=== PATIENT | female | born 1965 | race Caucasian/White ===

== ENCOUNTER 2019-10-01 14:49 | Outpatient (CLI) | payer OTHER, SELFPAY ==
--- NOTE | 2019-10-01 | ECHO_ITS ---
Patient Info Name: Latoya Gilliland Age: 54 years : 1965 Gender: Female Ht: 64 in Wt: 220 lbs BSA: 2.17 m2 HR: 68 bpm Heart Rhythm: Sinus Rhythm Technical Quality: Good Exam Date: 10/01/2019 2:58 PM Exam Location: [facility] Pulmonary Patient Status: Outpatient Admit Date: 10/01/2019 BP unable to obtain due to: Other Staff Ordering Physician: Wesley, Nohemi WISEMAN Electroplating Worker: Ranjan Sullivan RDCS Attending Provider: Wesley, Nohemi WISEMAN Referring Physician: Wesley KUHN; Exam Type: CA echo doppler color flow Study Info Indications R06.09 - Other forms of dyspnea Complete two-dimensional, color flow and Doppler transthoracic echocardiogram is performed. History/Risk Factors Dyspnea; CVA, HTN, DM2. Summary 1. Left ventricular systolic function is normal, estimated at 60-65%. 2. The left ventricular diastolic function is normal. 3. No significant valvular pathology. Left Ventricle Left ventricular chamber dimension is normal. Left ventricular systolic function is normal, estimated at 60-65%. There is mild concentric increased left ventricular wall thickness. The left ventricular diastolic function is normal. Right Ventricle Right ventricular chamber dimension is normal. Left Atria Left atrial chamber dimension is normal. Right Atria Right atrial chamber dimension is normal. Aortic Valve The aortic valve is trileaflet. There is mild aortic valve sclerosis. Pulmonic Valve The pulmonic valve is not well visualized. Mitral Valve The mitral valve has normal leaflets. Tricuspid Valve The tricuspid valve leaflets are normal. Pericardium/Pleural The pericardium appears normal. Aorta The aortic root size at the sinus of Valsalva is normal. Left Ventricular Outflow Tract Name Value Normal LVOT 2D LVOT Diameter 1.9 cm LVOT Doppler LVOT Peak Gradient 11 mmHg LVOT Mean Gradient 5 mmHg LVOT VTI 37 cm LVOT VTI/AV VTI Ratio 0.7 LVOT Stroke Volume 106 ml LVOT CO 7.3 l/min LVOT CI 3.4 l/min/m2 Mitral Valve Name Value Normal MV Doppler MV Decel Jenkins 420 cm/s2 MV PHT 67 ms MV Area (PHT) 3.3 cm2 4.0-5.0 MV Diastolic Function MV E Peak Velocity 97 cm/s MV A Peak Velocity 82 cm/s MV E/A 1.2 MV Decel Time 230 ms MV Annular TDI MV
== END 2019-10-01 14:50 | disposition home or self-care (01) ==
PROVIDERS: Visit Provider Physician Assistant
DX: R06.09 Other forms of dyspnea (principal)
CPT/HCPCS: 93306

== ENCOUNTER 2021-10-20 14:43 | Outpatient (CLI) | payer OTHER, SELFPAY ==
--- NOTE | ~2021-10-20 | XR_ITS ---
XR knee RT 3V DATE: 10/20/2021 15:20 INDICATION: Right knee joint pain for 2 months TECHNIQUE: Otis and AP, PA and lateral weight bearing views COMPARISON: None FINDINGS: There is tricompartment osteophytosis, most pronounced at the medial compartment with promi nent medial compartment joint space loss. There is periarticular spurring at all 3 compartments. Supe rior pole patellar enthesopathy at quadriceps tendon insertion. Small suprapatellar knee joint effusion is suggested. Osteopenia. No fracture or dislocation, periosteal reaction or bone destruction. No radiopaque intra-articular lo ose body or chondrocalcinosis. 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 Impression: Tricompartment osteoarthritis, most pronounced at the medial compar tment Small knee joint effusion
--- NOTE | ~2021-10-20 | XR_ITS ---
XR chest 2V DATE: 10/20/2021 15:21 INDICATION: Wheezing TECHNIQUE: PA and lateral views COMPARISON: None FINDINGS: Normal heart size. No hilar or mediastinal enlargement. No pulmonary infiltrate or consolid ation, pleural effusion or pulmonary vascular congestion or pneumothorax. Dextroscoliosis of the thoracic spine. Osteopenia. IMPRESSION: No active cardiopulmonary disease Mild thoracic dextro scoliosis Osteopenia Reviewed, dictated and finalized at location B.
== END 2021-10-20 14:44 | disposition home or self-care (01) ==
PROVIDERS: PCP Physician Assistant; Visit Provider Physician Assistant
DX: R06.2 Wheezing (principal); M25.461 Effusion, right knee; M17.11 Unilateral primary osteoarthritis, right knee; M85.88 Other specified disorders of bone density and structure, other site; M41.9 Scoliosis, unspecified
CPT/HCPCS: 71046; 73562

== ENCOUNTER 2022-03-03 15:46 | Outpatient (CLI) | payer OTHER, SELFPAY ==
--- NOTE | ~2022-03-03 | DEXA_ITS ---
Bone Density Report Name: JOVANI JAIME Age: 56 Sex: Female Ethnicity: White Date of : 1965 Indication: postmenopausal; screening for osteoporosis; height loss; Referring Provider: STALIN FOSTER Study: Bone densitometry was performed. Exam Date: March 03, 2022 Accession number: [id number] Bone Density: Region BMD T-score Z-score Classification AP Spine(L1-L4) 0.995 -0.5 0.8 Normal Femoral Neck (Left) 0.798 -0.5 0.8 Normal Total Hip (Left) 0.918 -0.2 0.7 Normal Femoral Neck (Right) 0.737 -1.0 0.2 Normal Total Hip (Right) 0.871 -0.6 0.3 Normal Total Hip Mean 0.894 -0.4 0.5 Normal World Health Organization criteria for BMD impression classify patients as: Normal (T-score at or above -1.0), Osteopenia (T-score between -1.0 and -2.5), or Osteoporosis (T-score at or below -2.5). 10-year Fracture Risk: FRAX not reported because: All T-scores for Spine Total, Hip Total, Femoral Neck at or above -1.0 Clinical Information Provided by Patient: Has used the following medications: Vitamin D, Calcium Patient maximum height was 65 Menopause Age: 46 Does not regularly consume dairy products Drinks caffeinated beverages Onset of menses at age 14 Number of children 2 Impression: The patient has normal bone mass. Discussion: BONE DENSITY IS ABOVE THE MINIMUM DESIRABLE LEVEL AT ALL SKELETAL SITES TESTED. This patient?s bone mineral density is above the minimum desirable level (T-score -1.0 or better) at all sites measured. The patient should follow a healthful lifestyle (good nutrition with adequate calcium and vitamin D, and appropriate weight-bearing exercise). Follow-Up: Consider repeating this study in 5 years or sooner if there is some new clinical indication. Reported by: [facility] on 03/03/2022 4:26:00 PM. Reviewed, dictated and finalized at location ABrianna STOCK
--- NOTE | ~2022-03-03 | MM_ITS ---
EXAMINATION: MM screening sweta BI w fernando HISTORY: Screening mammogram TECHNIQUE: Craniocaudal and mediolateral oblique 3-D tomosynthesis images were obtained and synthetic 2-D images were generated. CAD analysis was submitted and interpreted. COMPARISON: No prior mammogram is available for comparison at this institution. BREAST PARENCHYMAL COMPOSITION: The breasts are heterogeneously dense, which may obscure small masses . FINDINGS: RIGHT BREAST: Asymmetry is present in the middle third of inner breast 4.5 cm from the nipple on the craniocaudal view. LEFT BREAST: There is possible architectural distortion best appreciated 5 cm from the nipple in the middle third of the inner breast on the craniocaudal view. IMPRESSION: 1. Bilateral breast findings as described above. 2. Additional mammographic views and possible breast ultrasound are recommended. BI-RADS Category 0: Incomplete: Needs additional imaging evaluation. Reviewed, dictated and finalized at location A. PHIBIOUS OPERATIONS OFFICER IMPRESSION: 1. Bilateral breast findings as described above. 2. Additional mammographic views and possible breast ultrasound are recommended . BI-RADS Category 0: Incomplete: Needs additional imaging evaluation.
== END 2022-03-03 15:47 | disposition home or self-care (01) ==
LOC: ANHIMG 15:51
PROVIDERS: PCP Physician Assistant; Visit Provider Advanced Practice Midwife
DX: Z12.31 Encounter for screening mammogram for malignant neoplasm of breast (principal); M81.0 Age-related osteoporosis without current pathological fracture; R92.8 Other abnormal and inconclusive findings on diagnostic imaging of breast
CPT/HCPCS: 77063; 77067; 77080

== ENCOUNTER 2022-03-25 10:03 | Emergency (ER) | payer OTHER, SELFPAY ==
--- NOTE | 2022-03-25 10:12 | ED.FEMALEGU ---
HPI - Female Genitourinary General Chief complaint: Urogenital-Female Stated complaint: possible UTI Time Seen by Provider: 03/25/22 10:25 Source: patient and RN notes reviewed Mode of arrival: ambulatory Limitations: no limitations History of Present Illness HPI Narrative: 56-year-old female presents concern for urinary tract infection. She reports symptoms started about a week ago and seemed to go away, they came back about 2 days ago and or worse. She reports low back pain, nausea, incontinence. Denies fevers MD elicited complaint: UTI Related Data Home Medications Medication Instructions Recorded Confirmed aspirin 81 mg tablet,delayed 81 mg DAILY 03/25/22 03/25/22 release atenolol 100 mg tablet 100 mg DAILY 03/25/22 03/25/22 atorvastatin 80 mg tablet 80 mg DAILY 03/25/22 03/25/22 clopidogrel 75 mg tablet 75 mg DAILY 03/25/22 03/25/22 insulin detemir U-100 100 unit/mL 100 unit subcut DIRECTED 03/25/22 03/25/22 (3 mL) subcutaneous pen (Levemir FlexTouch U-100 Insulin) lisinopril 20 1 tablet BID 03/25/22 03/25/22 mg-hydrochlorothiazide 12.5 mg tablet Allergies Allergy/AdvReac Type Severity Reaction Status Date / Time Sulfa (Sulfonamide Allergy Intermediate Hives / Verified 03/25/22 10:16 Antibiotics) Red Face Review of Systems Review of Systems: CONSTITUTIONAL: Denies malaise, chills, sweats, or fever. CARDIOVASCULAR: Denies chest pain, palpitations, or edema. RESPIRATORY: Denies cough or dyspnea. GASTROINTESTINAL: Mild abdominal discomfort palpation, nausea, vomiting, diarrhea GENITOURINARY: Reports dysuria, frequency, urgency, suprapubic pressure. Denies flank pain or hematuria. SKIN: Denies rash or itching. MUSCULOSKELETAL: Denies back pain or myalgia. All systems reviewed & are unremarkable except as noted in HPI and below PMFSH Comments At time of signature, agree with nursing past medical, surgical, social and family history. There is no relevant family history pertinent to the presenting complaint Exam Narrative: GENERAL: Well-appearing, well-nourished, and in no acute distress. HEAD: Normocephalic. EYES: PERRLA, conjunctivae clear. NECK: Supple. No lymphadenopathy CHEST: Clear to auscultation. No respiratory distress. HEART: Regular rate and rhythm. ABDOMEN: Soft, nontender upon palpation, nondistended, normal active bowel sounds, no palpable or pulsatile masses, no guarding. No CVA tenderness SKIN: Warm, dry, no rash. NEURO: Alert and oriented x3. PSYCH: Normal mood and affect Course Course Emergency Course: Patient is aware of diagnosis, understands and agrees to treatment plan. Anticipatory guidance given. Patient agrees to follow-up as directed and is aware of reasons to seek care at the emergency department. Portions of this record may have been created with voice recognition software Level of Care: Express Care Visit Vital Signs Vital signs: Reviewed. MDM - Female Genitourinary MDM Narrative Medical decision making narrative: Exam findings and UA show no acute concerns or changes; patient is non-toxic appearing and is in no distress. Patient is appropriate for outpatient treatment and follow-up. Differential Diagnosis Differential diagnosis: Likely urinary tract infection and cystitis Critical Care Time Critical Care Time Critical Care Time: No Discharge Plan Discharge Clinical Impression: Urinary tract infection Patient Disposition: Home, Self-Care Condition: Stable Instructions: Antibiotic Form, Urinary Tract Infection in Women (ED) Additional Instructions: We will send a urine culture to the lab; if the culture identifies an organism that the prescribed antibiotic will not treat, you will receive a phone call from an urgent care staff member and an appropriate antibiotic will be prescribed. -Your symptoms should begin to improve within a day of starting antibiotics. But you should finish all the antibiotic pills you get. Otherwise your
[2022-03-25 10:16] VITALS: BP 126/53; PULSE 73; RESP 16; TEMP 36.4; O2SAT 99
[2022-03-25 10:17] VITALS: BP 126/53; PULSE 73; RESP 16; TEMP 36.4; O2SAT 99
== END 2022-03-25 10:26 | disposition home or self-care (01) ==
PROVIDERS: Emergency Provider Nurse Practitioner; PCP Physician Assistant
DX: N39.0 Urinary tract infection, site not specified (principal); E78.00 Pure hypercholesterolemia, unspecified; I10 Essential (primary) hypertension; E11.9 Type 2 diabetes mellitus without complications
CPT/HCPCS: 81003; 87077; 87086; 87088; 99213; G0463

== ENCOUNTER 2022-06-08 11:45 | Outpatient (CLI) | payer OTHER, SELFPAY ==
--- NOTE | ~2022-06-08 | MMUS_ITS ---
EXAMINATION: MM diagnostic sweta BI w fernando, US breast BI limited HISTORY: Right breast asymmetry and possible architectural distortion of the left breast on screening mammogram TECHNIQUE: Additional 3-D tomosynthesis images of the breasts were performed and synthetic 2-D images were generated. CAD analysis was submitted and interpreted. High resolution limited bilateral breast ultrasound was performed. COMPARISON: 03/03/2022 BREAST PARENCHYMAL COMPOSITION: The breasts are heterogeneously dense, which may obscure small masses . FINDINGS: MAMMOGRAPHIC FINDINGS: Right breast: There is persistent asymmetry in the middle third of the inner breast 4.5 cm from the n ipple on the craniocaudal view. No associated mass or architectural distortion are identified. Left breast: No persistent suspected architectural distortion is identified with spot compression of the left breast. ULTRASOUND: Right breast: There is a possible 5 mm hypoechoic mass at the 2:00 location 5 cm from the nipple with no posterior features or internal vascularity. There is a 4 mm oval, circumscribed, parallel, hypoec hoic mass at the 12:00 location 2 cm from the nipple with no posterior features or internal vasculari ty. Left breast: No sonographic correlate is identified for the mammographic finding in question. IMPRESSION: 1. Probably benign asymmetry and masses of the right breast. 2. Recommend 6 month follow-up right diagnostic mammogram and ultrasound. BI-RADS category 3, probably benign findings. Reviewed, dictated and finalized at location A. Y ATTENDANT IMPRESSION: 1. Probably benign asymmetry and masses of the right breast. 2. Recommend 6 month follow-up right diagnostic mammogram and ultrasound. BI-RADS category 3, probably benign findings.
== END 2022-06-08 11:46 | disposition home or self-care (01) ==
LOC: ANHIMG 11:47
PROVIDERS: PCP Physician Assistant; Visit Provider Advanced Practice Midwife
DX: R92.8 Other abnormal and inconclusive findings on diagnostic imaging of breast (principal)
CPT/HCPCS: 76642; 77062; 77066; G0279

== ENCOUNTER 2022-08-24 08:04 | Emergency (ER) | payer OTHER, SELFPAY ==
--- NOTE | 2022-08-24 08:12 | ED.SKABFB ---
HPI - Skin/Abscess/Foreign Bdy General Chief complaint: Skin/Abscess/Foreign Body Stated complaint: Rash Time Seen by Provider: 08/24/22 08:39 Source: patient and RN notes reviewed Mode of arrival: ambulatory Limitations: no limitations History of Present Illness HPI narrative: 57 year old female presents with concern for itchy rash on her right arm in the antecubital space, in the webbing of her left fingers, between her breasts, and now is on her left eyelid. She reports the rash on her left arm has wept clear fluid. She denies any known exposure to poison richard or other plants, She denies any new personal care products or home care products. She denies swollen lips, swollen tongue. She reports she has had similar rash in the past, she has never been diagnosed with eczema. She reports she took Benadryl that helped with the itching. MD complaint: rash Related Data Home Medications Medication Instructions Recorded Confirmed aspirin 81 mg tablet,delayed 81 mg DAILY 03/25/22 08/24/22 release atenolol 100 mg tablet 100 mg DAILY 03/25/22 08/24/22 atorvastatin 80 mg tablet 80 mg DAILY 03/25/22 08/24/22 clopidogrel 75 mg tablet 75 mg DAILY 03/25/22 08/24/22 insulin detemir U-100 100 unit/mL 100 unit subcut DIRECTED 03/25/22 08/24/22 (3 mL) subcutaneous pen (Levemir FlexTouch U-100 Insulin) lisinopril 20 1 tablet BID 03/25/22 08/24/22 mg-hydrochlorothiazide 12.5 mg tablet Allergies Allergy/AdvReac Type Severity Reaction Status Date / Time Sulfa (Sulfonamide Allergy Intermediate Hives / Verified 08/24/22 08:10 Antibiotics) Red Face Review of Systems Review of Systems: CONSTITUTIONAL: Denies malaise, chills, sweats, or fever. EYES: Denies redness, or discharge. ENT: Denies rhinorrhea, congestion, swollen lips, swollen tongue CARDIOVASCULAR: Denies chest pain, palpitations, or edema. RESPIRATORY: Denies cough or dyspnea. GASTROINTESTINAL: Denies abdominal pain, nausea, vomiting SKIN: Reports itchy rash on her right arm, left hand, chest, left eye MUSCULOSKELETAL: Denies joint pain or myalgia. NEUROLOGIC: Denies headache. All systems reviewed & are unremarkable except as noted in HPI and below PMFSH Comments At time of signature, agree with nursing past medical, surgical, social and family history. There is no relevant family history pertinent to the presenting complaint Exam Narrative: GENERAL: Well-appearing, well-nourished, and in no acute distress. HEAD: Normocephalic, atraumatic. EYES: PERRLA, conjunctivae clear, and EOMI. ENT: Mucous membranes moist. Oropharynx without edema, erythema or lesions. NECK: Supple. No lymphadenopathy CHEST: Clear to auscultation. No respiratory distress. HEART: Regular rate and rhythm. SKIN: Warm, dry. Patches of plaque like erythema without vesicles noted in the right antecubital space, in the webbing of the left hand fingers, in the crease of the breasts and a small patch on the left eyelid NEURO: Alert and oriented x3. PSYCH: Normal mood and affect Course Course Emergency Course: Patient is aware of diagnosis, understands and agrees to treatment plan. Anticipatory guidance given. Patient agrees to follow-up as directed and is aware of reasons to seek care at the emergency department. Portions of this record may have been created with voice recognition software Level of Care: Express Care Visit Vital Signs Vital signs: Reviewed. MDM - Skin/Abscess/Foreign Bdy MDM Narrative Medical decision making narrative: Does not appear at this time to be erythema multiforme, bullous, SJS, TEN; no evidence at this time to suggest RMSF, endocarditis or Lyme disease; patient looks well, nontoxic and is tolerating oral intake; no neurologic signs or symptoms; no headache, photophobia or neck pain; afebrile; appropriate for initial outpatient treatment; discussed the importance of follow-up, patient agrees; question, viral exanthema, contact dermatitis, allergic
[2022-08-24 08:13] VITALS: BP 138/74; PULSE 66; RESP 16; TEMP 36.9; O2SAT 99
== END 2022-08-24 08:47 | disposition home or self-care (01) ==
PROVIDERS: Emergency Provider Nurse Practitioner; PCP Physician Assistant
DX: L30.9 Dermatitis, unspecified (principal); E78.00 Pure hypercholesterolemia, unspecified; I10 Essential (primary) hypertension; E11.9 Type 2 diabetes mellitus without complications
CPT/HCPCS: 99213; G0463

== ENCOUNTER 2022-11-30 07:53 | Observation (INO) | payer OTHER, SELFPAY ==
[2022-11-30] VITALS (38 sets, daily range): BP systolic 107–181; BP diastolic 60–112; PULSE 58–117; RESP 11–23; TEMP 36.4–36.6; O2SAT 95–100; BMI 30.9
--- NOTE | 2022-11-30 | ECHO_ITS ---
Patient Info Name: Latoya Gilliland Age: 57 years : 1965 Gender: Female Ht: 65 in Wt: 160 lbs BSA: 1.84 m2 HR: 58 bpm BP: 129 / 83 mmHg Heart Rhythm: Sinus Rhythm Technical Quality: Fair Exam Date: 11/30/2022 2:30 PM Exam Location: [facility] Pulmonary Patient Status: Outpatient Admit Date: 11/30/2022 Staff Ordering Physician: Octavio Mays MD Roguer: Yara Payan RDCS Attending Provider: Margarito Gu MD Referring Physician: Tabatha ANDERSON; Exam Type: CA echo dop color flow w con Study Info Indications - Diabetes I10 - Essential (primary) hypertension - Dizziness, Arrhythmia Complete two-dimensional, color flow and Doppler transthoracic echocardiogram is performed with contrast to opacify the left ventricle and to improve the deliniation of the left ventricle endocardial borders. Contrast/Agitated Saline Contrast/Ag. Saline: Definity Amount: 2.00 ml Administered By: Yara Payan RDCS Existing IV Access: Yes IV Access Condition: patent with no signs of infiltration Summary 1. Left ventricular chamber dimension is normal. 2. Left ventricular systolic function is normal, estimated at 60-65%. 3. There is mildly increased left ventricular wall thickness. 4. The left ventricular diastolic function is grade I diastolic dysfunction. 5. Left atrial chamber dimension is mildly enlarged. 6. There is mild aortic valve stenosis with a peak velocity of 246.91 cm/s, mean gradient of 7 mmHg, and aortic valve area of 1.62 cm2. 7. There is mild aortic valve calcification. 8. There is mild mitral valve regurgitation. 9. The mitral valve has thickened leaflets. 10. There is mild tricuspid valve regurgitation. Left Ventricle Left ventricular chamber dimension is normal. Left ventricular systolic function is normal, estimated at 60-65%. There is mildly increased left ventricular wall thickness. The left ventricular diastolic function is grade I diastolic dysfunction. Right Ventricle Right ventricular chamber dimension is normal. Right ventricular systolic function is normal. Left Atria Left atrial chamber dimension is mildly enlarged. Right Atria Right atrial chamber dimension is normal. Atrial Septum Intact interatrial septum visualized by color flow imaging. Aortic Valve The aortic valve is trileaflet. There is mild aortic valve stenosis with a peak velocity of 246.91 cm/s, mean gradient of 7 mmHg, and aortic valve area of 1.62 cm2. There is trace aortic valve regurgitation. There is mild aortic valve calcification. Pulmonic Valve The pulmonic valve is normal. There is no pulmonic valve stenosis. There is trace pulmonic regurgitation. Mitral Valve The mitral valve has thickened leaflets. There is no mitral valve stenosis. There is mild mitral valve regurgitation. Tricuspid Valve The tricuspid valve leaflets are normal. There is no significant tricuspid valve stenosis. There is mild tricuspid valve regurgitation. No pulmonary hypertension, estimated pulmonary arterial systolic pressure is 27 mmHg. Pericardium/Pleural The pericardium appears normal. There is trivial pericardial effusion. Inferior Vena Cava Normal inferior vena cava with >50% collapse upon inspiration consistent with normal right atrial pressure, 10 mmHg. Aorta The aortic root size at the sinus of Valsalva is normal. Left Ventricular Outflow Tract Name Value Normal -----
--- NOTE | ~2022-11-30 | MR_ITS ---
EXAMINATION: MR brain/brain stem wo/w con DATE: 11/30/2022 16:11 INDICATION: dizziness TECHNIQUE: Magnetic resonance imaging (MRI) of the brain and brainstem was performed without and with 14 mL MultiHance intravenous contrast. Sequences included sagittal and axial T1-weighted SE, axial d iffusion-weighted FS EPI ASSET, axial T2*-weighted GRE, axial T2-weighted FLAIR Propeller, and axial T2-weighted Propeller. Postcontrast axial and coronal T1-weighted SE was obtained. Apparent diffusion coefficient (ADC) maps were created. COMPARISON: None. FINDINGS: No abnormal restricted diffusion to suggest acute ischemic infarct. No MRI evidence of hemorrhage or extra-axial collection. No suspicious foci of susceptibility to suggest prior intraparenchymal hemorr wendy. Normal white matter signal. No evidence of advanced or lobar predominant parenchymal volume los s. No abnormal enhancement. The basilar cisterns are patent. Flow voids are preserved. Paranasal sinu ses are within normal limits. Globes and orbital contents are within normal limits. IMPRESSION: Normal MR brain findings. Reviewed, dictated and finalized at location K. IMPRESSION: Normal MR brain findings.
--- NOTE | ~2022-11-30 | US_ITS ---
EXAMINATION: US carotid duplex BI DATE: 11/30/2022 16:33 INDICATION: Left-sided carotid bruit TECHNIQUE: Grayscale, color Doppler, and pulsed Doppler images of the cervical carotid arteries were obtained. The degree of vessel stenosis is placed in one of the following categories: normal, <50%, 5 0-69%, >=70% but less than near-occlusion, near-occlusion, or total occlusion. Note that percent sten osis relative to normal distal artery lumen diameter is indirectly measured from velocity measurement s as described by Ar, et al. Radiology 2003; 229:340-346. COMPARISON: None. FINDINGS: RIGHT: The right common carotid artery (CCA) peak systolic velocity (PSV) is 81 cm/s. The right internal car otid artery (ICA) PSV is 95 cm/s. The right ICA end-diastolic velocity (EDV) is 33 cm/s. The right IC A/CCA PSV ratio is 1.2. Grayscale and color Doppler images yield an estimate of <50% diameter reducti on from plaque in the ICA. The external carotid artery (ECA) PSV is 80 cm/s. There is antegrade flow in the right vertebral artery. LEFT: The left CCA PSV is 85 cm/s. The left ICA PSV is 115 cm/s. The left ICA EDV is 35 cm/s. The left ICA/ CCA PSV ratio is 1.4. Grayscale and color Doppler images yield an estimate of <50% diameter reduction from plaque in the ICA. The ECA PSV is 87 cm/s. There is antegrade flow in the left vertebral artery . IMPRESSION: 1. <50% stenosis in the right internal carotid artery. 2. <50% stenosis in the left internal carotid artery. 3. Cardiac arrhythmias present. Correlate with EKG. Reviewed, dictated and finalized at location A.
--- NOTE | ~2022-11-30 | XR_ITS ---
EXAMINATION: XR chest 2V DATE: 11/30/2022 08:33 INDICATION: 2 weeks of dizziness and arrhythmia is TECHNIQUE: PA and lateral views of the chest were obtained. COMPARISON: Chest radiograph dated 10/20/2021 FINDINGS: The lungs remain clear with no focal airspace opacities, pulmonary edema, pleural effusion or pneumot horax. The cardiomediastinal silhouette is normal. Mild S-shaped curvature of the thoracolumbar spine with moderate spondylosis. IMPRESSION: 1. No acute cardiopulmonary disease. Reviewed, dictated and finalized at location A.
--- NOTE | 2022-11-30 07:55 | ECG_ITS ---
Measurements Intervals [place] Rate: 96 P: 7 DE: 171 QRS: 13 QRSD: 94 T: 39 QT: 419 QTc: 531 Interpretive Statements SINUS RHYTHM WITH FREQUENT SUPRAVENTRICULAR PREMATURE COMPLEXES PROLONGED QT INTERVAL ABNORMAL ECG NO PREVIOUS ECG AVAILABLE FOR COMPARISON Electronically Signed On 11-30-2022 9:19:03 CDT by Octavio Mays M.D.
[2022-11-30 08:12] LABS: Basophils Absolute Auto 0.1 K/mm3 (0.0-0.1); Basophils Percent Auto 0.8 % (0.2-1.2); Eosinophils Absolute Auto 0.3 K/mm3 (0-0.3); Eosinophils Percent Auto 4.2 % (0-4.4); Hematocrit 39.3 % (37.0-47.0); Hemoglobin 13.1 g/dL (12.0-15.0); Immature Granulocyte Absolute 0.01 K/mm3 (0.00-0.031); Immature Granulocyte Percent A 0.2 % (0-0.5); Lymphocytes Absolute Auto 1.36 K/mm3 (0.9-3.2); Lymphocytes Percent Auto 23.1 % (18.3-44.2); Mean Corpuscular HGB Conc 33.3 g/dl (32-36); Mean Corpuscular Hemoglobin 28.7 pg (26-34); Mean Platelet Volume 11.7 fl (7.4-10.4); Monocytes Absolute Auto 0.8 K/mm3 (0.1-0.6); Monocytes Percent Auto 12.9 % (2.6-8.5); Neutrophils Absolute Auto 3.5 K/mm3 (1.3-6.7); Neutrophils Percent Auto 58.8 % (45.5-73.1); Platelet Count Result 227 k/mm3 (150-375); Red Blood Count 4.57 M/mm3 (4.2-5.4); Red Cell Distribution Width 12.9 % (11.5-14.5); White Blood Count 5.9 K/mm3 (4.5-10.0)
[2022-11-30 08:21] LABS: Alanine Aminotransferase 24 U/L (6-35); Albumin Level 4.5 g/dL (3.5-5.1); Alkaline Phosphatase 81 U/L (38-126); Anion Gap 11 mmol/L (8-16); Aspartate Amino Transferase 33 U/L (14-36); Bilirubin,Total 0.8 mg/dL (0.2-1.3); Blood Urea Nitrogen 19 mg/dL (7-17); Calcium 9.2 mg/dL (8.4-10.2); Carbon Dioxide 25 mmol/L (22-30); Chloride 107 mmol/L (98-107); Estimated CRCL calculation 67 ml/min; Estimated Glomerular Filt Rate > 60; Glucose 111 mg/dL (65-110); Potassium 3.7 mmol/L (3.4-5.0); Sodium 143 mmol/L (137-145)
[2022-11-30 08:56] LABS: Partial Thromboplastin Time 27.2 SECONDS (22.3-36.8)
[2022-11-30] MEDS: MECLIZINE HCL 25 MG TABLET PO (09:34)
--- NOTE | 2022-11-30 10:38 | ED.DIZZY ---
HPI - Dizziness General Chief Complaint: Dizziness Stated Complaint: DIZZY SPELLS Time Seen by Provider: 11/30/22 07:55 History of Present Illness HPI Narrative: Patient is a 57-year-old female who presents ER with dizziness. Feels like spinning. Has been occurring intermittently over the last week. Seems to be worse with standing. No nausea or vomiting. No symptoms of panic or racing of the heart. No chest pain or chest pressure. Patient has history of CVA in the past for which she takes aspirin and Plavix. She follows with [facility] but denies any cardiac issues. She has no weakness in arm or leg. No slurred speech. No falls. Denies history of arrhythmia. Related Data Home Medications Medication Instructions Recorded Confirmed aspirin 81 mg tablet,delayed 81 mg DAILY 03/25/22 08/24/22 release atenolol 100 mg tablet 100 mg DAILY 03/25/22 08/24/22 atorvastatin 80 mg tablet 80 mg DAILY 03/25/22 08/24/22 clopidogrel 75 mg tablet 75 mg DAILY 03/25/22 08/24/22 insulin detemir U-100 100 unit/mL 100 unit subcut DIRECTED 03/25/22 08/24/22 (3 mL) subcutaneous pen (Levemir FlexTouch U-100 Insulin) lisinopril 20 1 tablet BID 03/25/22 08/24/22 mg-hydrochlorothiazide 12.5 mg tablet Allergies Allergy/AdvReac Type Severity Reaction Status Date / Time Sulfa (Sulfonamide Allergy Intermediate Hives / Verified 11/30/22 08:01 Antibiotics) Red Face Review of Systems Review of Systems: All systems reviewed & are unremarkable except as noted in HPI and below Constitutional: Constitutional: Denies chills, Denies fatigue and Denies fever(s) Eyes: Eyes: Denies change in vision and Denies photophobia ENT: Reports dizziness, Denies nasal congestion and Denies sore throat Cardiovascular: Cardiovascular: Denies chest pain, Denies rapid heart rate and Denies radiating jaw, neck or arm pain Respiratory: Respiratory: Denies cough and Denies dyspnea Gastrointestinal: Gastrointestinal: Denies abdominal pain, Denies nausea and Denies vomiting Neurologic: Reports dizziness, Denies syncope, Denies headache(s), Denies focal weakness and Denies numbness [facility] Past Medical History Medical History (Updated 11/30/22 @ 13:10 by Chi Brewer MD) CVA (cerebral vascular accident) Hypercholesterolemia Hypertension Surgical History Surgical History (Updated 11/30/22 @ 13:09 by Chi Brewer MD) No pertinent past surgical history Exam Narrative: GENERAL: Well-appearing, well-nourished, and in no acute distress. HEAD: Normocephalic, atraumatic. EYES: PERRL and EOMI. ENT: Mucous membranes moist. CHEST: Clear to auscultation. No respiratory distress. HEART: Irregular rate and rhythm. Normal peripheral pulses. ABDOMEN: Soft, nontender, nondistended. EXTREMITIES: Normal range of motion. No edema. SKIN: Warm, dry, no rash. NEURO: No upper or lower extremity drift. Normal finger-nose testing and [id number] testing. Cranial nerves symmetric. Clear speech without dysarthria. Alert and oriented x3. PSYCH: Normal mood and affect. Course Vital Signs Vital signs: Vital Signs Pulse Rate 91 11/30/22 07:57 Respiratory Rate 19 11/30/22 07:57 Pulse Oximetry 97 11/30/22 07:57 Temperature 97.5 F L 11/30/22 08:36 Pulse Rate 75 11/30/22 11:31 Respiratory Rate 16 11/30/22 11:31 Blood Pressure 138/82 11/30/22 11:31 Pulse Oximetry 98 11/30/22 11:31 Oxygen Delivery Room Air 11/30/22 08:02 MDM - Dizziness MDM Narrative Medical decision making narrative: -Presentation: Patient is a 57-year-old female presenting to the ER with dizziness. -DDX includes but is not limited to: BPPV, CVA, arrhythmia -Co-morbidities complicating care: History of CVA. -Social determinants of health: Lives at home by herself. -External Chart Review: None -Hx from independent Sources: Patient -Independent interpretation of studies: EKG with a lot of ectopy. Ultim
--- NOTE | 2022-11-30 13:39 | PM.IMHP ---
H&P: HPI History of Present Illness Date/Time: 11/30/22 13:39 Chief Complaint: dizziness, abnormal weight loss Narrative: 57 y/o F with history of HTN, HLD, DM and CVA (2019) here for dizziness. Patient reports intermittent dizziness for the past 2 weeks. No consistent alleviating or aggravating factors. Patient does note that excessive heat or moderate activity, playing with grandchildren, can precipitate symptom. No prior history of dizziness. She denied CP, SOB, near-syncope/syncope, or neurological deficits. Most recent episode occurred while patient was driving. Patient is also reporting R ear urticaria and discomfort for the past week. Of note, patient also endorsed 20-25 lbs. of unintentional weight loss in the last 4 months. FH of ovarian and breast cancer (mother). Last mammogram and US done on 06/29/22, with asymmetry noted and BIRADS3. Review of Systems Review of Systems: All systems reviewed & are unremarkable except as noted in HPI and below PMFSH Past Medical History Medical History (Updated 11/30/22 @ 18:07 by Torie Briseno APRN) Cardiac murmur CVA (cerebral vascular accident) Diabetes mellitus Hypercholesterolemia Hyperlipidemia associated with type 2 diabetes mellitus Hypertension Surgical History Surgical History Previous section Family History Family History Father Diabetes mellitus Mother Breast cancer Ovarian cancer Sibling Diabetes mellitus Hypertension CKD (chronic kidney disease) Other Cancer Social History Social History (Updated 11/30/22 @ 14:04 by Torie Briseno APRN) Social History: Single, not sexually active Smoking status: Never smoker Alcohol intake: never Substance use: never Lack of Transportation: No Lack of Food: Never True Current Housing: I Have Housing Concerned About Future Housing: No Difficulty Paying Gas/Electric Bills: No Difficulty Paying for Meds: No Currently Unemployed: No Education: Don't Know Difficulty w/ Childcare or Family Care: No Living arrangements: with family Additional living arrangements comments: currently living with daughter Occupation/Education: unemployed Spiritual care concerns: No Meds Home Medications and Allergies Home Medications Medication Instructions Recorded Confirmed Type aspirin 81 mg tablet,delayed 81 mg DAILY 03/25/22 11/30/22 History release atenolol 100 mg tablet 100 mg DAILY 03/25/22 11/30/22 History atorvastatin 80 mg tablet 80 mg DAILY 03/25/22 11/30/22 History clopidogrel 75 mg tablet 75 mg DAILY 03/25/22 11/30/22 History insulin detemir U-100 100 unit/mL 30 unit subcut QPM 03/25/22 11/30/22 History (3 mL) subcutaneous pen (Levemir FlexTouch U-100 Insulin) lisinopril 20 2 tablet DAILY 03/25/22 11/30/22 History mg-hydrochlorothiazide 12.5 mg tablet calcium phos,tribasic 260 mg-D3 25 2 tablet PO DAILY 11/30/22 11/30/22 History mcg-herbal 50 mg chewable tablet (Alive Calcium-Vitamin D3) liraglutide 0.6 mg/0.1 mL (18 mg/3 1.8 mg subcut QAM 11/30/22 11/30/22 History mL) subcutaneous pen injector (Victoza 3-Ector) Allergies Allergy/AdvReac Type Severity Reaction Status Date / Time Sulfa (Sulfonamide Allergy Intermediate Hives / Verified 11/30/22 13:46 Antibiotics) Red Face Vital Signs Vital Signs - 24 hr 11/30/22 08:02 11/30/22 07:57 11/30/22 07:58 Temperature Pulse Rate 93 91 101 H Respiratory Rate 23 H 19 20 Blood Pressure 143/73 H 143/73 H Pulse Oximetry 100 97 97 Oxygen Delivery Room Air 11/30/22 08:00 11/30/22 08:01 11/30/22 08:16 Temperature Pulse Rate 100 85 98 Respiratory Rate 14 15 Blood Pressure 147/112 H 138/91 H Pulse Oximetry 96 98 Oxygen Delivery 11/30/22 08:17 11/30/22 08:19 11/30/22 08:36 Temperature 97.5 F L Pulse Rate 102 H 114 H 101 H Resp
--- NOTE | 2022-11-30 13:41 | PM.CNCAR ---
Assessment and Plan Assessment and plan (1) Arrhythmia: Code(s): I49.9 - Cardiac arrhythmia, unspecified Status: Acute Assessment and Plan: Do not think this is atrial fibrillation. Possibly multifocal atrial tachycardia or frequent PACs. Will keep her on manager monitoring overnight. Check a magnesium level. Replace her potassium with 40 mg p.o. x1 as her potassium is 3.7. Will check a 2D echocardiogram with Doppler as well as a TSH and free T4 level. Continue beta-garcia if she has not received her atenolol and today, this should be given. Continue aspirin for now. Obviously if she is found have clear evidence of atrial fibrillation, her chads Vasc score would definitely warrant anticoagulation. (2) Hypertension associated with diabetes: Code(s): E11.59 - Type 2 diabetes mellitus with other circulatory complications; I15.2 - Hypertension secondary to endocrine disorders Status: Acute Assessment and Plan: Continue lisinopril/hydrochlorothiazide and atenolol (3) Hyperlipidemia associated with type 2 diabetes mellitus: Code(s): E11.69 - Type 2 diabetes mellitus with other specified complication; E78.5 - Hyperlipidemia, unspecified Status: Acute Assessment and Plan: Continue high-dose atorvastatin (4) History of CVA (cerebrovascular accident): Code(s): Z86.73 - Personal history of transient ischemic attack (TIA), and cerebral infarction without residual deficits Status: Acute Assessment and Plan: On aspirin Plavix and statin (5) Dizziness: Code(s): R42 - Dizziness and giddiness Status: Acute Assessment and Plan: Uncertain etiology. MRI brain is pending. Uncertain if this related to her arrhythmia or not at this point (6) Carotid bruit: Code(s): R09.89 - Other specified symptoms and signs involving the circulatory and respiratory systems Status: Acute Assessment and Plan: Bilateral carotid artery ultrasound will be ordered History of Present Illness History of Present Illness Consult date/time: 11/30/22 13:41 Requesting physician: Chi Brewer MD Consult reason: Other (Arrhythmia) Reason For Visit: dizziness,arrhythmia Narrative: Reason for consultation: Arrhythmia Date of service 11/30/2022 Requesting provider: Dr. Brewer History: Patient is a 57-year-old female who does not have a known cardiac history that I am aware of although she does follow with [facility]. She does have a history of stroke, diabetes, hypertension, hyperlipidemia. She presents to the emergency department with a few week history of dizziness and dizzy spells. She describes them as some lightheadedness. It will last for 2-3 minutes at a time. She does have some palpitations also over the same timeframe. She does have some shortness breath with chasing around her 4-year-old grandchildren. No syncope, paroxysmal nocturnal dyspnea, orthopnea, chest pain or edema. She had several of these episodes today and she decided to come to the ER for further evaluation. While on manager monitoring, she was having a arrhythmias. Arrhythmias were originally thought to be atrial fibrillation but there does appear to be P-waves and this does raise the possibility of multifocal atrial tachycardia. No clear sustained atrial fibrillation is seen Review of Systems Review of Systems: All systems reviewed & are unremarkable except as noted in HPI and below Constitutional: Constitutional: Denies body ache(s) Eyes: Eyes: Denies blurry vision ENT: Reports Normal hearing present Cardiovascular: Cardiovascular: Denies chest pain, Reports lightheadedness and Reports palpitations Respiratory: Respiratory: Reports dyspnea on exertion Gastrointestinal: Gastrointestinal: Denies abdominal pain Genitourinary: Genitourinary: Denies hematuria Musculoskeletal: Musculoskeletal: Denies back pain Integumentary/Breasts: Skin/Breast: Denies prurit
[2022-11-30] MEDS: POTASSIUM CHLORIDE 20 MEQ ER TABLET 40 MEQ PO (14:04)
--- NOTE | 2022-11-30 14:33 | ADMGEN ---
This patient, Latoya Gilliland, was admitted to [facility] Surg Room 307-01. Patient/family oriented to hospital policies and general routines including ID bracelet, bed and alarms, visiting hours, pain management, procedures, bathroom and other care routines, personal items, smoking policy, room service/diet, and visiting hours. Information on how to activate the Rapid Response Team has been discussed. Patient/Family are encouraged to report perceived risks to care and to ask questions if they do not understand what they are told or what they should do. Report from Ludmila in er.
[2022-11-30] MEDS: PERFLUTREN LIPID MICROSPHERES 1.5 ML VIAL DILUTED TO 10 ML TOTAL VOLUME IV PUSH (15:08)
--- NOTE | 2022-11-30 15:27 | IVDEFINITY ---
Prior to administration of IV Definity the patient was educated on the risks and benefits of the imaging enhancing agent including potential adverse side effects. The patient verbalized understanding. Allergies were verified. No exclusion criteria were identified and at least one of the following inclusion criteria were met: 1) physician request, 2) patient technically difficult to image (per the [place] [employer] guidelines of two or more segments not discernable within the apical view), or 3) questionable left ventricular function. ?
[2022-11-30] MEDS: ACETAMINOPHEN 325 MG TABLET 650 MG PO (15:29)
[2022-11-30] MEDS: hydroCHLOROthiazide 12.5 MG CAPSULE PO (16:50)
[2022-11-30] MEDS: lisinopriL 20 MG TABLET PO (16:50)
[2022-11-30] MEDS: INSULIN GLARGINE (*BKC) 100 UNITS/ML 30 UNITS SUB-Q (18:54)
[2022-11-30 18:56] LABS: Glucose Point of Care 123 mg/dl (65-105)
[2022-11-30] MEDS: AMOXICILLIN/CLAVULANATE K 875-125 MG TAB 1 TABLET PO (20:07)
[2022-11-30 21:42] LABS: Glucose Point of Care 87 mg/dl (65-105)
[2022-12-01] VITALS: PULSE 67
[2022-12-01 04:00] VITALS: PULSE 67
[2022-12-01 06:00] VITALS: BP 118/65; PULSE 70; RESP 16; TEMP 36.2; O2SAT 98
[2022-12-01 06:58] LABS: Albumin Level 4.2 g/dL (3.5-5.1); Anion Gap 8 mmol/L (8-16); Blood Urea Nitrogen 22 mg/dL (7-17); Calcium 8.7 mg/dL (8.4-10.2); Carbon Dioxide 26 mmol/L (22-30); Chloride 106 mmol/L (98-107); Estimated CRCL calculation 80 ml/min; Estimated Glomerular Filt Rate > 60; Glucose 123 mg/dL (65-110); Phosphorus 3.9 mg/dL (2.5-4.5); Potassium 3.7 mmol/L (3.4-5.0); Sodium 140 mmol/L (137-145)
[2022-12-01 07:42] LABS: Glucose Point of Care 113 mg/dl (65-105)
--- NOTE | 2022-12-01 07:52 | PM.IMPN ---
Progress Note: A&P Assessment and Plan (1) AOM (acute otitis media): Code(s): H66.90 - Otitis media, unspecified, unspecified ear Status: Acute Assessment and Plan: Itching and discomfort to R ear x1 week. Exam shows cream/white discoloration of TMand small area of blood near umbo. No longer bulging, patient reports mild relief. - Continue Augmentin 875/125 mg BID x7 days. (2) Diabetes mellitus: Code(s): E11.9 - Type 2 diabetes mellitus without complications Status: Acute Assessment and Plan: Well controlled DM. A!C 5.8. -continue home medications: Levemir 30 units SQ once daily (PM) Victoza 1.8 mg SQ once daily (AM) -ACHS finger stick glucose monitoring -high dose corrective insulin (3) Dizziness: Code(s): R42 - Dizziness and giddiness Status: Acute Assessment and Plan: Patient here with dizziness for the last 2 weeks, intermittent. Aggravated by heat and over-exertion. AOM of R ear on exam, improve appearance. No complaints of dizziness today. -MRI of brain showed no abnormalities. (4) Hypertension associated with diabetes: Code(s): E11.59 - Type 2 diabetes mellitus with other circulatory complications; I15.2 - Hypertension secondary to endocrine disorders Status: Acute Assessment and Plan: Last BP 118/65. -continue home medications atenolol 100 mg lisinopril/HCTZ 10/12.5 mg atorvastatin 80 mg -continue to monitor (5) Cardiac murmur: Code(s): R01.1 - Cardiac murmur, unspecified Status: Acute Assessment and Plan: Patient reported known cardiac murmur. -US of Carotids ordered: <50% stenosis R IJ and L IJ, cardiac arrhythmias present. -Echo: Grade 1 LV dysfunction, L atrial chamber mildly enlarged, mild aortic valve stenosis, mild mitral valvae regurg, mitral valve thickening, mild tricuspid valve regurg. -Follow-up w/cards. Patient has appt. w/[facility] early Jan. -plan to speak with cards about dysrhythmia on tele prior to d/c -continue potassium replaced w/ 40 meq, 3.7 today (6) Abnormal weight loss: Code(s): R63.4 - Abnormal weight loss Status: Acute Assessment and Plan: Patient presents here with 20-25 lbs. of weight loss in the last 4 months. FH of breast and ovarian cancer. Abnormal recent mammogram/US - probable benign asymmetry and masses of R breast (5 mm @2 o'clock, 4 mm at 12 o'clock) -No follow-up mammogram scheduled. Encourage patient to set up exam. Plan -DVT Prophylaxis - SCD and Lovenox 40 mg SQ daily -Full Code -Diabetic Diet Dispo - d/c Time Spent With Patient Time with patient: less than 15 minutes (1) Dizziness: Code(s): R42 - Dizziness and giddiness Category: Medical Plan: Patient here with dizziness for the last 2 weeks, intermittent. Aggravated by heat and over-exertion. AOM of R ear on exam, improve appearance. No complaints of dizziness today. -MRI of brain showed no abnormalities. (2) Abnormal weight loss: Code(s): R63.4 - Abnormal weight loss Category: Medical Plan: Patient presents here with 20-25 lbs. of weight loss in the last 4 months. FH of breast and ovarian cancer. Abnormal recent mammogram/US - probable benign asymmetry and masses of R breast (5 mm @2 o'clock, 4 mm at 12 o'clock) -No follow-up mammogram scheduled. Encourage patient to set up exam. (3) Hypertension associated with diabetes: Code(s): E11.59 - Type 2 diabetes mellitus with other circulatory complications; I15.2 - Hypertension secondary to endocrine disorders Category: Medical Plan: Last BP 118/65. -continue home medications atenolol 100 mg lisinopril/HCTZ 10/12.5 mg atorvastatin 80 mg -continue to monitor (4) Diabetes mellitus: Code(s): E11.9 - Type 2 diabetes mellitus without complications Category: Medical Plan: Well controlled DM. A!C 5.8.
[2022-12-01 08:00] VITALS: PULSE 70
[2022-12-01 08:18] LABS: Hemoglobin A1C 5.8 % (<5.7)
[2022-12-01] MEDS: atenoloL 50 MG TABLET 100 MG PO (09:37)
[2022-12-01] MEDS: lisinopriL 20 MG TABLET PO (09:37)
[2022-12-01] MEDS: hydroCHLOROthiazide 12.5 MG CAPSULE PO (09:37)
[2022-12-01] MEDS: ATORVASTATIN 40 MG TABLET 80 MG PO (09:38)
[2022-12-01] MEDS: ASPIRIN 81 MG ENTERIC TABLET PO (09:38)
[2022-12-01] MEDS: CLOPIDOGREL BISULFATE 75 MG TABLET PO (09:38)
[2022-12-01] MEDS: AMOXICILLIN/CLAVULANATE K 875-125 MG TAB 1 TABLET PO (09:38)
[2022-12-01] MEDS: ENOXAPARIN 40 MG/0.4 ML SYRINGE SUB-Q (09:39)
[2022-12-01 11:33] LABS: Glucose Point of Care 90 mg/dl (65-105)
--- NOTE | 2022-12-01 11:47 | PM.DS ---
DS: Admitting Diagnosis Discharge Date 12/01/2022 Admitting Diagnosis Dizziness DS: Discharge Diagnosis Discharge Diagnosis (1) Dizziness: Code(s): R42 - Dizziness and giddiness Status: Acute (2) Abnormal weight loss: Code(s): R63.4 - Abnormal weight loss Status: Acute (3) Hypertension associated with diabetes: Code(s): E11.59 - Type 2 diabetes mellitus with other circulatory complications; I15.2 - Hypertension secondary to endocrine disorders Status: Acute (4) Diabetes mellitus: Code(s): E11.9 - Type 2 diabetes mellitus without complications Status: Acute (5) Cardiac murmur: Code(s): R01.1 - Cardiac murmur, unspecified Status: Acute (6) AOM (acute otitis media): Code(s): H66.90 - Otitis media, unspecified, unspecified ear Status: Acute DS: Summary Hospital Course Reason for hospitalization: Dizziness Hospital Course: 57 y/o F with history of HTN, HLD, DM and CVA (2019) here for dizziness. Patient reported intermittent dizziness for the past 2 weeks. Hx of CVA with left sided deficits and visual disturbances, given TPA with resolution of symptoms. No residual deficits. MRI ordered for posterior stroke rule out and negative for abnormalities. EKG showed NSR with frequent PACs. Carotid doppler showed <50% stenosis of the right and left internal carotid arteries. Echo showed grade 1 diastolic dysfunction with EF of 60-65%. Monitored with telemetry, potassium replaced, and cardiology was consulted. Cardiology did not recommend any medication changes and patient has follow-up in Jan. Lab results, imaging, and consultations discussed with patient. Physical exam relieved an acute otitis media of the R ear and Augmentin was initiated with improvement of discomfort. Side effects of Augmentin discussed. Home DM and HTN medications were continued without incident. No changes to home medications at discharge. Status at Discharge Cognitive/behavioral status at discharge: stable Time Spent with Patient Time attestation: Total time spent providing and/or coordinating discharge services:35 minutes Time spent: Greater than 30 minutes Exam Const: General: comfortable and no acute distress HENMT: Ears: TM abnormal Other: Cream color discoloration of R TM with small area of blood just lateral to umbo at 3 o'clock position. TM now non-bulging with appropriate COL. L TM with champagne colored serous fluid, non-bulging, COL appropriately placed, no erythema. Eyes: General: appearance normal, both eyes and all related structures Sclera: sclerae normal Pupils: Equal, round and reactive pupils present EOM: EOMs intact bilaterally Other: No abnormalities with cardinal directions of gaze. Neck: Neck: supple Carotids: bruit Other: Faint left-sided carotid bruit. Resp: Effort & Inspection: normal respiratory effort Auscultation: clear to auscultation bilaterally Cardio: Rate: regular rate Heart sounds: Murmur heart sound present Other: known cardiac murmur, soft whooshing quality hear at LUSB and LLSB. GI: Auscultation: normal bowel sounds Other: mild tenderness to LLQ/pelvic area, no underlying mass or abnormality palpated Skin: General skin exam: normal color and no rashes or lesions noted Neuro: Cranial nerves: Yes Equal, round and reactive pupils present Speech: normal speech Motor exam (neuro): 5/5 motor strength present throughout Sensory Exam: normal sensation Other: A/Ox4, no dysarthria or aphasia Extrem: General: normal to inspection Psych: Mental Status: mental status grossly normal Affect: normal affect and Sad affect present Other: improved mood, pleasant and interactive. DS: Data Data Completed and Pending Labs on day of discharge: Labs from last 24 hours 12/01/22 12/01/22 12/01/22 11:31 07:26 06:31 Sodium 140 Potassium 3.7 Chloride 106 Carbon Dioxide 26 Anion Gap
[2022-12-01] MEDS: POTASSIUM CHLORIDE 20 MEQ ER TABLET 40 MEQ PO (13:09)
[2022-12-01 14:00] VITALS: BP 104/54; PULSE 71; RESP 16; TEMP 37.4; O2SAT 100
[2022-12-01 16:43] LABS: Glucose Point of Care 100 mg/dl (65-105)
== END 2022-12-01 18:30 | disposition home or self-care (01) ==
LOC: ANHED 08:23 → ANH3MEDSUR 11:56
PROVIDERS: Internal Medicine Cardiovascular Disease; Admitting Provider Internal Medicine; Emergency Provider Emergency Medicine; PCP Physician Assistant; Visit Provider Internal Medicine
DX: I49.9 Cardiac arrhythmia, unspecified (principal); R01.1 Cardiac murmur, unspecified; I11.9 Hypertensive heart disease without heart failure; E11.9 Type 2 diabetes mellitus without complications; E78.5 Hyperlipidemia, unspecified; I08.3 Combined rheumatic disorders of mitral, aortic and tricuspid valves; R63.4 Abnormal weight loss; Z68.31 Body mass index [BMI] 31.0-31.9, adult; R94.31 Abnormal electrocardiogram [ECG] [EKG]; Z86.73 Personal history of transient ischemic attack (TIA), and cerebral infarction without residual deficits; Z79.82 Long term (current) use of aspirin; Z79.02 Long term (current) use of antithrombotics/antiplatelets; Z79.4 Long term (current) use of insulin; Z79.85 Long-term (current) use of injectable non-insulin antidiabetic drugs; Z79.899 Other long term (current) drug therapy; Z83.3 Family history of diabetes mellitus; Z82.49 Family history of ischemic heart disease and other diseases of the circulatory system
CPT/HCPCS: 36415; 70553; 71046; 80053; 80069; 81025; 82948; 83036; 83735; 84436; 84443; 85025; 85610; 85730; 93005; 93880; 96372; 99285; A9270; A9577; C8929; G0378; G0379; J1650; J1815; Q9957

== ENCOUNTER 2024-03-28 09:09 | Emergency (ER) | payer OTHER, SELFPAY ==
--- NOTE | ~2024-03-28 | XR_ITS ---
EXAMINATION: XR hand LT min 3V DATE: 03/28/2024 10:50 INDICATION: Left hand pain. Dog bite. TECHNIQUE: 3 views of left hand were obtained. COMPARISON: None. FINDINGS: Bone alignment is normal. No fracture. There is mild osteoarthritis of first carpometacarpa l joint, first interphalangeal joint, and second-fifth distal interphalangeal joints. IMPRESSION: 1. No fracture or radiopaque foreign body. Reviewed, dictated and finalized at location A. PREVENTION/SAFETY DISTRICT MANAGER
[2024-03-28 09:26] VITALS: BP 143/68; PULSE 65; RESP 16; TEMP 37.5; O2SAT 100
--- NOTE | 2024-03-28 10:38 | ED_ITS ---
HPI - General Adult General Chief complaint: Animal Bite Stated complaint: dog bite lt hand Time Seen by Provider: 03/28/24 10:39 Source: patient, RN notes reviewed and old records reviewed Mode of arrival: ambulatory Limitations: no limitations History of Present Illness HPI narrative: 4-year-old female presents to the [facility] with a dog bite to the left hand 2 puncture wounds noted to the dorsal aspect, abrasion noted to the palmar aspect. Area was originally soaks with wound cleanser. Area it was cleaned with Betadine as well. Patient's dog bite occurred 24 hours prior to arrival Per medical record last Tdap was October 26, 2017, 6 years ago Related Data Home Medications ?Medication ?Instructions ?Recorded ?Confirmed ?Last Taken ?Type aspirin 81 mg tablet,delayed 81 mg DAILY 03/25/22 11/30/22 Unknown History release atenolol 100 mg tablet 100 mg DAILY 03/25/22 11/30/22 Unknown History atorvastatin 80 mg tablet 80 mg DAILY 03/25/22 11/30/22 Unknown History clopidogrel 75 mg tablet 75 mg DAILY 03/25/22 11/30/22 Unknown History lisinopril 20 2 tablet DAILY 03/25/22 11/30/22 Unknown History mg-hydrochlorothiazide 12.5 mg tablet liraglutide 0.6 mg/0.1 mL (18 mg/3 1.8 mg subcut QAM 11/30/22 03/28/24 Unknown History mL) subcutaneous pen injector (Victoza 3-Ector) Allergies Allergy/AdvReac Type Severity Reaction Status Date / Time Sulfa (Sulfonamide Allergy Intermediate Hives / Verified 03/28/24 10:20 Antibiotics) Red Face Review of Systems Review of Systems: All systems reviewed & are unremarkable except as noted in HPI and below Constitutional: Constitutional: Reports no additional constitutional complaints ENT: Reports system reviewed and no additional complaints, except as documented Cardiovascular: Cardiovascular: Reports no additional cardiovascular complaints, Denies chest pain and Denies dyspnea Respiratory: Respiratory: Reports no additional respiratory complaints, Denies chest congestion, Denies cough and Denies dyspnea Musculoskeletal: Musculoskeletal: Reports no additional musculoskeletal complaints Integumentary/Breasts: Skin/Breast: Reports as per HPI and Reports other (Puncture wounds in abrasion left hand) [facility] Past Medical History Medical History Cardiac murmur Diabetes mellitus Hyperlipidemia associated with type 2 diabetes mellitus Hypercholesterolemia Hypertension CVA (cerebral vascular accident) Surgical History Surgical History Previous section Family History Family History Father Diabetes mellitus Mother Breast cancer Ovarian cancer Sibling Diabetes mellitus Hypertension CKD (chronic kidney disease) Other Cancer Social History Social History Social History: Single, not sexually active Smoking status: Never smoker Alcohol intake: never Substance use: never Lack of Transportation: No Lack of Food: Never True Current Housing: I Have Housing Concerned About Future Housing: No Difficulty Paying Gas/Electric Bills: No Difficulty Paying for Meds: No Currently Unemployed: No Education: Don't Know Difficulty w/ Childcare or Family Care: No Living arrangements: with family Additional living arrangements comments: currently living with daughter Occupation/Education: unemployed Spiritual care concerns: No Comments At the time of my signature, I reviewed and agree with the nursing past medical, surgical, social, and family history. There is no relevant family history pertinent to the patient complaint. Exam Const: General: cooperative, healthy appearing, comfortable, no acute distress, well developed, alert and well nourished Nutritional Appearance: well nourished Orientation/consciousness: patient oriented x3 Limitations: no limitations HENMT: Head: normal to inspection Eyes: General: appearance normal, both eyes and all related structures Neck: Neck: normal visual inspection, full ROM, no lymphadenopathy and no meningeal signs Chest: Chest palpation & inspection: normal inspection of the chest Resp: Effort & Inspection: normal respiratory effort and able to speak in complete sentences Cardio: Rate: regular rate Skin: General skin exam: normal color and no rashes or lesions noted Wou nds: wounds noted Other: 2 puncture wounds noted to the dorsal as pect of hands, abrasion most likely caused by the to noted to the palmar aspect. Mild swelling without erythema, no drainage noted. Full range of motion of all 5 fingers, strong brazer furnace noted. Capillary refill under 2 seconds with sensation intact in all 5 fingers Neuro: General: patient oriented x3, gait normal, moves all extremities and no meningeal signs Cognition (Neuro): normal cognition Speech: normal speech Gait exam (Neuro): Normal gait present Extrem: General: normal to inspection, full ROM, capillary refill normal and normal gait Psych: Appearance: grossly normal and well kempt Mental Status: mental status grossly normal Speech and movement: Normal speech and movement present and Clear speech present Affect: normal affect Attitude: cooperative Course Course Level of Care: Express Care Visit Vital Signs Vital signs: Vital Signs Temperature 99.5 F 03/28/24 09:26 Pulse Rate 65 03/28/24 09:26 Respiratory Rate 16 03/28/24 09:26 Blood Pressure 143/68 H 03/28/24 09:26 Pulse Oximetry 100 03/28/24 09:26 Oxygen Delivery Room Air 03/28/24 09:26 Temperature 99.5 F 03/28/24 09:26 Pulse Rate 65 03/28/24 09:26 Respiratory Rate 16 03/28/24 09:26 Blood Pressure 143/68 H 03/28/24 09:26 Pulse Oximetry 100 03/28/24 09:26 Oxygen Delivery Room Air 03/28/24 09:26 Reviewed Medical Decision Making MDM Narrative Medical decision making narrative: Patient sitting comfortably in exam room. Nontoxic, vitals stable. Patient in no acute distress. X-ray showed no foreign bodies or fractures. Patient presents for dog bites that occurred 1 day prior. Updated tetanus. Patient appropriate for outpatient treatment with antibiotics and close follow- up. Discharge instructions reviewed with patient, as well as provided in writing per nursing staff. The instructions also include specific and strict return/GO TO THE ER as well as f/u information. All questions have been answered, and the patient deny any further questions with discharge and discharge plan. Some parts of this dictation were generated by voice recognition software and may contain typographical and/or grammatical inaccuracies. Differential Diagnosis Differential Diagnosis: Dog bite Medical Records Medical records reviewed: Yes I reviewed the external patient's medical records. Vital Signs Vital Signs: Vital Signs Temperature 99.5 F 03/28/24 09:26 Pulse Rate 65 03/28/24 09:26 Respiratory Rate 16 03/28/24 09:26 Blood Pressure 143/68 H 03/28/24 09:26 Pulse Oximetry 100 03/28/24 09:26 Oxygen Delivery Room Air 03/28/24 09:26 Temperature 99.5 F 12/26/24 09:26 Pulse Rate 65 03/28/24 09:26 Respiratory Rate 16 03/28/24 09:26 Blood Pressure 143/68 H 03/28/24 09:26 Pulse Oximetry 100 03/28/24 09:26 Oxygen Delivery Room Air 03/28/24 09:26 Reviewed Lab Data Lab results reviewed: Yes I reviewed the patient's lab results. Labs: Reviewed Imaging Data Radiologist's impression: EXAMINATION: XR hand LT min 3V DATE: 03/28/2024 10:50 INDICATION: Left hand pain. Dog bite. TECHNIQUE: 3 views of left hand were obtained. COMPARISON: None. FINDINGS: Bone alignment is normal. No fracture. There is mild osteoarthritis of first carpometacarpal joint, first interphalangeal joint, and second-fifth distal interphalangeal joints. IMPRESSION: 1. No fracture or radiopaque foreign body. Critical Care Time Critical Care Time Critical Care Time: No Discharge Plan Discharge Clinical Impression: Vaccine for [id number]-[id number], combined Dog bite of left hand Qualifiers: Encounter type: initial encounter Qualified Code(s): S61.452A - Open bite of left hand, initial encounter; W54.0XXA - Bitten by dog, initial encounter Patient Disposition: Home, Self-Care Condition: Stable Instructions: Antibiotic Form, Animal Bite (ED) Additional Instructions: Wash area 2 to 3 times a day with warm soapy water, preferably an antibacterial soap such as Dial. Take antibiotic as prescribed Rest, ice and elevate every 2-3 hours for 15-20 minutes while awake Take Tylenol alternating with ibuprofen as needed for pain Follow-up with your primary care provider in 1-2 weeks. If the hand becomes more swollen, red and painful please go directly to the emergency room for further evaluation. Patient Language: Indonesian Prescriptions: New amoxicillin-pot clavulanate 875-125 mg tablet 1 tablet PO Q12H Qty: 20 0RF No Action atorvastatin 80 mg tablet 80 mg DAILY lisinopril-hydrochlorothiazide 20-12.5 mg tablet 2 tablet DAILY atenolol 100 mg tablet 100 mg DAILY clopidogrel 75 mg tablet 75 mg DAILY aspirin 81 mg tablet,delayed release (DR/EC) 81 mg DAILY liraglutide [Victoza 3-Ector] 0.6 mg/0.1 mL (18 mg/3 mL) pen injector 1.8 mg SUBCUT QAM Levemir FlexPen 100 unit/mL (3 mL) insulin pen 15 unit subcut HS Qty: 15 0RF Follow-up/Referrals: Wesley,IVONE Canales [Primary Care Provider] - 1 Week ([facility] care follow up ) Stand Alone Forms: Work/School Release IP Time of Disposition: 11:07
[2024-03-28] MEDS: TETANUS,DIPHTHERIA,AC PERTUSSIS ADULT (0.5 ML) BOOSTRIX IM (10:50)
== END 2024-03-28 11:15 | disposition home or self-care (01) ==
PROVIDERS: Emergency Provider Nurse Practitioner; PCP Physician Assistant
DX: S61.432A Puncture wound without foreign body of left hand, initial encounter (principal); W54.0XXA Bitten by dog, initial encounter; Z23 Encounter for immunization; R01.1 Cardiac murmur, unspecified; E11.9 Type 2 diabetes mellitus without complications; E78.00 Pure hypercholesterolemia, unspecified; I10 Essential (primary) hypertension; Z86.73 Personal history of transient ischemic attack (TIA), and cerebral infarction without residual deficits
CPT/HCPCS: 73130; 90471; 90715; 99213; G0463

== ENCOUNTER 2024-11-28 12:08 | Emergency (ER) | payer OTHER, SELFPAY ==
--- NOTE | 2024-11-28 12:13 | ED.SKABFB ---
HPI - Skin/Abscess/Foreign Bdy General Chief complaint: Skin/Abscess/Foreign Body Stated complaint: Insect Bite On RT Leg Time Seen by Provider: 11/28/24 12:10 Source: patient Mode of arrival: ambulatory Limitations: no limitations History of Present Illness HPI narrative: Patient is a 59-year-old female who presents with skin redness and swelling after being stung by a wasp yesterday. Patient reports it is itching but the redness, warmth and firmness has spread from her right thigh down her leg. Patient took Benadryl at 6:00 a.m.. Denies any shortness of breath Related Data Home Medications ?Medication ?Instructions ?Recorded ?Confirmed ?Last Taken ?Type aspirin 81 mg tablet,delayed 81 mg DAILY 03/25/22 11/30/22 Unknown History release atenolol 100 mg tablet 100 mg DAILY 03/25/22 11/30/22 Unknown History atorvastatin 80 mg tablet 80 mg DAILY 03/25/22 11/30/22 Unknown History clopidogrel 75 mg tablet 75 mg DAILY 03/25/22 11/30/22 Unknown History lisinopril 20 2 tablet DAILY 03/25/22 11/30/22 Unknown History mg-hydrochlorothiazide 12.5 mg tablet liraglutide 0.6 mg/0.1 mL (18 mg/3 1.8 mg subcut QAM 11/30/22 03/28/24 Unknown History mL) subcutaneous pen injector (Victoza 3-Ector) Allergies Allergy/AdvReac Type Severity Reaction Status Date / Time Sulfa (Sulfonamide Allergy Intermediate Hives / Verified 11/28/24 12:44 Antibiotics) Red Face Review of Systems Review of Systems: All systems reviewed & are unremarkable except as noted in HPI and below Constitutional: Constitutional: Denies body ache(s), Denies chills, Denies fatigue, Denies fever(s), Denies headache(s), Denies malaise and Denies weakness Eyes: Eyes: Denies blurry vision, Denies irritation and Denies loss of vision ENT: Denies otalgia, Denies headache(s), Denies nasal discharge, Denies sinus pain and Denies sore throat Cardiovascular: Cardiovascular: Denies chest pain, Denies irregular heart rhythm and Denies dyspnea Respiratory: Respiratory: Denies dyspnea Gastrointestinal: Gastrointestinal: Denies abdominal pain, Denies melena, Denies hematochezia, Denies diarrhea, Denies nausea and Denies vomiting Musculoskeletal: Musculoskeletal: Denies back pain, Denies myalgias and Denies arthralgias Integumentary/Breasts: Skin/Breast: Denies pruritus, Reports erythema, Denies rash and Reports skin swelling Neurologic: Denies headache(s), Denies loss of vision and Denies weakness Psychiatric: Psychiatric: Reports no additional psychiatric complaints Endocrine: Endocrine: Denies fatigue PMFSH Past Medical History Medical History Cardiac murmur Diabetes mellitus Hyperlipidemia associated with type 2 diabetes mellitus Hypercholesterolemia Hypertension CVA (cerebral vascular accident) Surgical History Surgical History Previous section Family History Family History Father Diabetes mellitus Mother Breast cancer Ovarian cancer Sibling Diabetes mellitus Hypertension CKD (chronic kidney disease) Other Cancer Social History Social History Social History: Single, not sexually active Smoking status: Never smoker Alcohol intake: never Substance use: never Lack of Transportation: No Lack of Food: Never True Current Housing: I Have Housing Concerned About Future Housing: No Difficulty Paying Gas/Electric Bills: No Difficulty Paying for Meds: No Currently Unemployed: No Education: Don't Know Difficulty w/ Childcare or Family Care: No Living arrangements: with family Additional living arrangements comments: currently living with daughter Occupation/Education: unemployed Spiritual care concerns: No Comments At time of signature, agree with nursing past medical, surgical, social and family history. There is no relevant family history pertinent to the presenting complaint. Exam Const: General: cooperative, healthy appearing, comfortable, no acute distress and well nourished Nutritional Appearance: well nourished Orientation/consciousness: patient oriented x3 Limitations: no limitations HENMT: Head: normal to inspection, normocephalic and atraumatic Ears: hearing grossly normal bilaterally and external ears normal Face/Nose/Sinus: Normal external nose present, normal facial exam and face symmetric Face and sinus: normal facial exam and face symmetric Mouth: Yes lip normal Eyes: General: appearance normal, both eyes and all related structures Alignment and Position: alignment normal and position normal Periorbital: periorbital findings normal Eyelids: eyelids normal Pupils: Equal, round and reactive pupils present EOM: EOMs intact bilaterally Neck: Neck: normal visual inspection, full ROM and supple Chest: Chest palpation & inspection: normal inspection of the chest Resp: Effort & Inspection: normal respiratory effort and able to speak in complete sentences Auscultation: clear to auscultation bilaterally Cardio: Rate: regular rate Rhythm: regular rhythm Heart sounds: S1 normal heart sound present and S2 normal heart sound present GI: Inspection: normal to inspection Skin: General skin exam: normal color and no rashes or lesions noted Full body images:  1. 10 cm x25 cm area of erythema, induration and warmth, anterior-lateral 2. 15 cmx15 cm area of erythema, induration and warmth Neuro: General: patient oriented x3 and moves all extremities Cranial nerves: Yes Equal, round and reactive pupils present Speech: normal speech Gait exam (Neuro): Normal gait present Extrem: General: normal to inspection, full ROM and no edema Psych: Appearance: grossly normal and well kempt Mental Status: mental status grossly normal Speech and movement: Normal speech and movement present Affect: normal affect Attitude: cooperative Thought process: Normal thought process present Course Course Emergency Course: Patient is aware of diagnosis, understands and agrees to treatment plan. Anticipatory guidance given. Patient agrees to follow-up as directed and is aware of reasons to seek care at the emergency department. Portions of this record may have been created with voice recognition software Level of Care: Express Care Visit Vital Signs Vital signs: Vital Signs Temperature 36.9 C 11/28/24 12:16 Pulse Rate 74 11/28/24 12:16 Respiratory Rate 16 11/28/24 12:16 Blood Pressure 131/89 11/28/24 12:16 Pulse Oximetry 100 11/28/24 12:16 Oxygen Delivery Room Air 11/28/24 12:16 Temperature 36.9 C 11/28/24 12:16 Pulse Rate 74 11/28/24 12:16 Respiratory Rate 16 11/28/24 12:16 Blood Pressure 131/89 11/28/24 12:16 Pulse Oximetry 100 11/28/24 12:16 Oxygen Delivery Room Air 11/28/24 12:16 Reviewed MDM - Skin/Abscess/Foreign Bdy MDM Narrative Medical decision making narrative: Will treat patient with both steroids and antibiotics to cover a drug reaction from wasp sting and cellulitis. Pt well hydrated appearing, in no respiratory distress, hemodynamically stable. Recommend supportive care. The patient is stable at time of discharge the clinical impression was discussed and the patient was given the opportunity to ask questions, which were addressed as completely as possible given the information available at present. Anticipatory guidance and return to care precautions were discussed and the importance of primary care follow-up was stressed and encouraged. The patient voiced understanding of the plan, indications to return, and the need for follow-up. Exam findings show no acute concerns or changes Patient is appropriate for outpatient treatment and follow-up. Differential Diagnosis Differential diagnosis: Likely abscess of skin or subcutaneous tissue, urticaria, cellulitis, insect bites (sting) and contact dermatitis Medical Records Attestation: I reviewed the patient's medical records. Discharge Plan Discharge Clinical Impression: Accidental wasp sting, Cellulitis Patient Disposition: Home Condition: Stable Instructions: Cellulitis (ED), Insect Bite or Sting (ED) Additional Instructions: Please follow up with your Primary Care Doctor within 48-72 hours - call for an appointment. Rest and elevate affected area Clean with soap and water only; Avoid using alcohol and peroxide. Elevate the affected area if possible Please take Antibiotics as directed. Take take steroids in the morning with food If you experience any worsening redness, swelling, streaking (red lines), fever or chills please go to the ER Seek Emergency Help If You Notice: ? Difficulty breathing or swallowing ? Swelling of the lips, tongue, or throat ? Hives over a large area ? Dizziness or fainting ? Nausea, vomiting, or a racing heart These may indicate anaphylaxis, a life-threatening allergic reaction. Call 911 or go to the ER immediately. For Less Severe Reactions (but with significant swelling): 1.?Antihistamines ? Diphenhydramine (Benadryl): 25?50 mg every 4?6 hours (adults) ? Non-drowsy alternatives: cetirizine (Zyrtec), loratadine (Claritin), fexofenadine ([place]ez) 2.?Cold Compress ? Apply a cold pack or cloth-wrapped ice to the area for 10?15 minutes at a time to reduce swelling and pain. 3.?Elevation ? Keep the head elevated, especially when lying down, to help reduce facial swelling. 4.?Pain Relief ? Tylenol 650-1000mg by mouth every 4-6 hours. Do not exceed 4000mg in 24 hours. ? Advil (Ibuprofen) 600 mg by mouth every 6 hours. Do not exceed 2400mg in 24 hours. 8 AM: Tylenol 11 AM: Ibuprofen 2 PM: Tylenol 5 PM: Ibuprofen 8 PM: Tylenol 11 PM: Ibuprofen 2 AM: Tylenol 5 AM: Ibuprofen 5.?Topical Corticosteroids ? Apply 1% hydrocortisone cream to the sting site (avoid near eyes or open skin). Patient Language: Iranian Prescriptions: New cephalexin 500 mg capsule 500 mg PO QID 7 Days Qty: 28 0RF prednisone 20 mg tablet See Rx Instructions .ROUTE .COMPLEX Qty: 9 0RF Rx Instructions: 40 mg daily x3 days, 20 mg daily x3 days No Action atorvastatin 80 mg tablet 80 mg DAILY lisinopril-hydrochlorothiazide 20-12.5 mg tablet 2 tablet DAILY atenolol 100 mg tablet 100 mg DAILY clopidogrel 75 mg tablet 75 mg DAILY aspirin 81 mg tablet,delayed release (DR/EC) 81 mg DAILY liraglutide [Victoza 3-Ector] 0.6 mg/0.1 mL (18 mg/3 mL) pen injector 1.8 mg SUBCUT QAM Follow-up/Referrals: Ole Sanders MD [Physician, Family Practice] - 3 Days Time of Disposition: 12:52
[2024-11-28 12:16] VITALS: BP 131/89; PULSE 74; RESP 16; TEMP 36.9; O2SAT 100
== END 2024-11-28 12:59 | disposition home or self-care (01) ==
PROVIDERS: Emergency Provider Nurse Practitioner Family
DX: T63.461A Toxic effect of venom of wasps, accidental (unintentional), initial encounter (principal); L03.115 Cellulitis of right lower limb; I10 Essential (primary) hypertension; E11.9 Type 2 diabetes mellitus without complications; Z79.85 Long-term (current) use of injectable non-insulin antidiabetic drugs; E78.00 Pure hypercholesterolemia, unspecified; R01.1 Cardiac murmur, unspecified; Z86.73 Personal history of transient ischemic attack (TIA), and cerebral infarction without residual deficits; Z79.82 Long term (current) use of aspirin
CPT/HCPCS: 99213; G0463

== ENCOUNTER 2024-12-09 08:14 | Emergency (ER) | payer OTHER, SELFPAY ==
[2024-12-09 08:23] VITALS: BP 152/72; PULSE 66; RESP 18; TEMP 36.6; O2SAT 100
--- NOTE | 2024-12-09 08:32 | ED.BACK ---
HPI - Back Pain/Injury General Chief Complaint: Urogenital-Female Stated Complaint: back pain Time Seen by Provider: 12/09/24 08:32 Source: patient Mode of arrival: ambulatory Limitations: no limitations History of Present Illness HPI Narrative: 59-year-old female presented for complaint of bilateral flank pain, worse on the right. Onset yesterday morning. Has taken Tylenol with minimal relief. She denies any injury. She denies rash. She denies any associated urinary symptoms, nausea vomiting, diarrhea, constipation, fevers or chills. Says pain is worse when she is walking and has to bend forward to reduce the pain. Denies a history of kidney stones. Recently completed antibiotic as prescribed last week for wasps sting. Pt underwent ablation recently. Related Data Home Medications ?Medication ?Instructions ?Recorded ?Confirmed ?Last Taken ?Type atenolol 100 mg tablet 100 mg PO DAILY 03/25/22 11/30/22 Unknown History atorvastatin 80 mg tablet 80 mg PO DAILY 03/25/22 11/30/22 Unknown History lisinopril 20 2 tablet PO DAILY 03/25/22 11/30/22 Unknown History mg-hydrochlorothiazide 12.5 mg tablet apixaban 5 mg tablet (Eliquis) mg 12/09/24 Unknown History diltiazem HCl 120 mg mg PO 12/09/24 Unknown History capsule,extended release 24 hr Allergies Allergy/AdvReac Type Severity Reaction Status Date / Time Sulfa (Sulfonamide Allergy Intermediate Hives / Verified 12/09/24 08:43 Antibiotics) Red Face Review of Systems Review of Systems: CONSTITUTIONAL: Denies body aches, fever, chills EYES: Denies visual changes CARDIOVASCULAR: Denies chest pain, palpitations, or edema. RESPIRATORY: Denies cough or dyspnea. GASTROINTESTINAL: Denies abdominal pain, nausea, vomiting, or diarrhea. SKIN: Denies rash, itching, or wounds. MUSCULOSKELETAL: reports back pain NEUROLOGIC: Denies headache, numbness, tingling, or weakness. All systems reviewed & are unremarkable except as noted in HPI and below PMFSH Past Medical History Medical History Cardiac murmur Diabetes mellitus Hyperlipidemia associated with type 2 diabetes mellitus Hypercholesterolemia Hypertension CVA (cerebral vascular accident) Surgical History Surgical History Previous section Family History Family History Father Diabetes mellitus Mother Breast cancer Ovarian cancer Sibling Diabetes mellitus Hypertension CKD (chronic kidney disease) Other Cancer Social History Social History Social History: Single, not sexually active Smoking status: Never smoker Alcohol intake: never Substance use: never Lack of Transportation: No Lack of Food: Never True Current Housing: I Have Housing Concerned About Future Housing: No Difficulty Paying Gas/Electric Bills: No Difficulty Paying for Meds: No Currently Unemployed: No Education: Don't Know Difficulty w/ Childcare or Family Care: No Living arrangements: with family Additional living arrangements comments: currently living with daughter Occupation/Education: unemployed Spiritual care concerns: No Comments At time of signature, I have reviewed and agree with nursing past medical, surgical, social and family history unless otherwise noted. Please see nursing chart for further information. There is no relevant family history pertinent to the presenting complaint Exam Narrative: GENERAL: Well-appearing NECK: Supple. full ROM CHEST: Speaks in full sentences. No respiratory distress. HEART: Regular rate and rhythm. Normal and equal peripheral pulses. MUSC: right CVA tenderness with palpation. No erythema, rash, or bruising. No Vertebral point tenderness. BLEs with normal strength and sensation. Gait steady. endorses pain with walking. pulse palpable and equal bilaterally, skin warm, dry, pink. Capillary refill less than 3 seconds. SKIN: Warm, dry, no rash. NEURO: Alert and oriented x3. Course Course Emergency Course: Patient is aware of diagnosis, understands and agrees to treatment plan. Anticipatory guidance given. Patient agrees to follow-up as directed and is aware of reasons to seek care at the emergency department. Portions of this record may have been created with voice recognition software Level of Care: Express Care Visit Vital Signs Vital signs: Vital Signs Temperature 97.9 F 12/09/24 08:23 Pulse Rate 66 12/09/24 08:23 Respiratory Rate 18 12/09/24 08:23 Blood Pressure 152/72 H 12/09/24 08:23 Pulse Oximetry 100 12/09/24 08:23 Oxygen Delivery Room Air 12/09/24 08:23 Temperature 97.9 F 12/09/24 08:23 Pulse Rate 66 12/09/24 08:23 Respiratory Rate 18 12/09/24 08:23 Blood Pressure 152/72 H 12/09/24 08:23 Pulse Oximetry 100 12/09/24 08:23 Oxygen Delivery Room Air 12/09/24 08:23 Reviewed MDM - Back Pain/Injury MDM Narrative Medical decision making narrative: urine dip reviewed with pt. Discussed other possible etiologies. Advised supportive measures and s/s to go to the ER. Pt is stable and appropriate for outpt treatment and follow up with pcp. Differential Diagnosis Differential diagnosis: Likely lumbar radiculopathy, sciatica, strain of lumbar region, renal colic, pyelonephritis and discitis Lab Data Labs: Lab Results 12/09/24 Range/Units 08:47 POC Urine Color Yellow POC Urine Clarity Clear POC Urine pH 7.0 POC Ur Specif [place] 1.020 POC Urine Protein Negative (Negative) POC Ur Glucose (UA) Negative (Negative) POC Urine Ketones Negative (Negative) POC Urine Blood Negative (Negative) POC Urine Nitrite Negative (Negative) POC Urine Bilirubin Negative (Negative) POC Urine Urobilinogen 0.2 POC U Leukocyte Esteras 1+ (Negative) Discharge Plan Discharge Clinical Impression: Acute right flank pain Patient Disposition: Home Condition: Stable Instructions: Antibiotic Form, Flank Pain (ED) Additional Instructions: Your urine will be sent of for a culture to determine if bacteria is causing your symptoms. If the culture shows a UTI, you will be notified and an antibiotic will be called in for you. Rest. Avoid pushing, pulling, lifting or anything that worsens the symptoms Tylenol 1000mg every 8 hours as needed You can alternate with ibuprofen 800mg as prescribed Cyclobenzaprine (Flexeril) is a muscle relaxer. Take it as directed. It can cause drowsiness so do not drive or operate machinery until you know how it makes you feel. Alternate ice/heat to the site. Lidocaine or salon pas pain patch or use pain cream like icy/hot or biofreeze. Follow up with your primary care provider as needed in 1 week Go to the ER for worsening symptoms or concerns Patient Language: Cuban Prescriptions: New cyclobenzaprine 10 mg tablet 10 mg PO TID PRN (Reason: muscle spasm) Qty: 10 0RF ibuprofen 800 mg tablet 800 mg PO TID PRN (Reason: pain) Qty: 12 0RF No Action diltiazem HCl 120 mg capsule,extended release 24hr PO Eliquis 5 mg tablet atorvastatin 80 mg tablet 80 mg PO DAILY lisinopril-hydrochlorothiazide 20-12.5 mg tablet 2 tablet PO DAILY atenolol 100 mg tablet 100 mg PO DAILY Follow-up/Referrals: UNKNOWN,DOCTOR [Primary Care Provider] Time of Disposition: 09:10
[2024-12-09 08:49] LABS: EDUAAPPEAR Clear; EDUABILI Negative (Negative); EDUABLOOD Negative (Negative); EDUACOLOR1 Yellow; EDUAGLUCOSE Negative (Negative); EDUAKETONE Negative (Negative); EDUALEUKO 1+ (Negative); EDUANITRATE Negative (Negative); EDUAPH 7.0; EDUAPROTEIN Negative (Negative); EDUASPGRAVITY 1.020; EDUAUROBILI 0.2
== END 2024-12-09 09:17 | disposition home or self-care (01) ==
PROVIDERS: Emergency Provider Nurse Practitioner Family
DX: R10.9 Unspecified abdominal pain (principal); E11.9 Type 2 diabetes mellitus without complications; I10 Essential (primary) hypertension; E78.00 Pure hypercholesterolemia, unspecified; R01.1 Cardiac murmur, unspecified; Z86.73 Personal history of transient ischemic attack (TIA), and cerebral infarction without residual deficits; Z79.01 Long term (current) use of anticoagulants
CPT/HCPCS: 81003; 87086; 99213; G0463